=== PATIENT | female | born 2005 | race Hispanic/Latino ===

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

== ENCOUNTER 2023-08-03 05:25 | Emergency (ER) | payer MEDICAID, OTHER ==
[~2023-08-03] VITALS: Ht 167.6 cm; Wt 108.9 kg
[2023-08-03 05:30] VITALS: BP 136/90; PULSE 86; RESP 16
[2023-08-03] MEDS: PENICILLIN V POTASSIUM 500 MG TABLET PO ONE (05:50)
[2023-08-03] MEDS: SOLU-MEDROL 125MG VIAL IM ONE (05:50)
[2023-08-03] MEDS ORDERED: ALBUHFA IH (05:52)
[2023-08-03] MEDS ORDERED: AMOX-427 PO (05:52)
== END 2023-08-03 05:58 | disposition home or self-care (01) ==
LOC: EDH 05:25
DX: H66.91 Otitis media, unspecified, right ear (principal); J02.8 Acute pharyngitis due to other specified organisms; B97.89 Other viral agents as the cause of diseases classified elsewhere; H60.501 Unspecified acute noninfective otitis externa, right ear; E66.9 Obesity, unspecified; Z68.30 Body mass index [BMI] 30.0-30.9, adult; Z98.890 Other specified postprocedural states; Z88.8 Allergy status to other drugs, medicaments and biological substances
CPT/HCPCS: 99283; 96372; J2930